=== PATIENT | female | born 1945 | race Caucasian/White ===

== ENCOUNTER 2019-12-31 16:27 | Outpatient (REF) | payer MEDICARE, SELFPAY | END 2019-12-31 16:28 | disposition home or self-care (01) | LOC: HO.LAB 16:27 | PROVIDERS: PCP Internal Medicine; Visit Provider Internal Medicine | DX: Z20.828 Contact with and (suspected) exposure to other viral communicable diseases (principal) | CPT/HCPCS: U0003 ==